=== PATIENT | female | born 1980 | race Caucasian/White ===

== ENCOUNTER 2017-12-22 14:37 | Emergency (ER) | payer OTHER ==
[~2017-12-22] VITALS: Ht 172.7 cm; Wt 84.4 kg
[~2017-12-22 14:37] MED LIST: BUSPIRONE HCL15 MG PO; CLONAZEPAM0.5 MG PO; DICLOFENAC POTA50 MG PO; FLUOXETINE HCL40 MG PO; KEPPRA500 MG PO; MELOXICAM7.5 MG PO; MIRTAZAPINE30 MG PO; PROPOXY-N/APAP1 EAC1 PO; ROZEREM8 MG PO; STRATTERA25 MG PO; WELLBUTRIN SR200 MG PO
[2017-12-22 15:29] LABS: APPEARANCE CLEAR ((CLEAR)); BILIRUBIN NEGATIVE; BLOOD NEGATIVE; COLOR STRAW ((YELLOW)); GLUCOSE (STRIP) NEGATIVE; KETONES NEGATIVE; LEUKOCYTES NEGATIVE; NITRITE NEGATIVE; PROTEIN (STRIP) NEGATIVE; UCUL ADDED? NO; UROBILINOGEN 0.2 MG/DL (0.2-1.0)
[2017-12-22 15:31] LABS: HEMATOCRIT 37.1 % (36.0-46.0); MCH 30.8 PG (29.0-34.0); MCV 87.9 FL (83-99); PLATELET COUNT 420 K/uL (156-360); RBC DIS.WIDTH-CV 11.9 % (11.8-14.6); RBC DIS.WIDTH-SD 38.2 % (39-53); RED BLOOD COUNT 4.22 M/uL (3.80-5.20); WHITE BLOOD COUNT 10.3 K/uL (4.1-10.2)
[2017-12-22 15:46] LABS: ALBUMIN 4.3 g/dL (3.2-4.8); CHLORIDE 97 mEq/L (99-109); POTASSIUM 4.4 mEq/L (3.7-5.4); SODIUM 130 mEq/L (136-147)
[2017-12-22 15:49] LABS: GLUCOSE 91 mg/dL (70-99); TOTAL PROTEIN 7.1 g/dL (6.4-8.3)
[2017-12-22 15:51] LABS: TOTAL BILIRUBIN 0.2 mg/dL (0.0-1.0)
[2017-12-22 15:52] LABS: ALKALINE PHOSPHATASE 88 IU/L (3-129); CREATININE 0.7 mg/dL (0.6-1.3); GFR ESTIMATE (CALCULATED) > 59 mL/min/
[2017-12-22 15:54] LABS: AST (GOT) 31 IU/L (2-34); UREA NITROGEN (BUN) 11 mg/dL (9-23)
[2017-12-22 15:55] LABS: ALT (GPT) 38 IU/L (3-49)
[2017-12-22 16:01] LABS: QUANTITATIVE HCG < 4.0 MIU/ML
[2017-12-22] MEDS ORDERED: MOTRIN800 MG PO (16:32)
[2017-12-22] MEDS ORDERED: FLOMAX0.4 MG PO (16:32)
[2017-12-22] MEDS ORDERED: ZOFRAN ODT4 MG PO (16:32)
[2017-12-22 17:15] VITALS: BP 149/89
== END 2017-12-22 17:59 | disposition home or self-care (01) ==
LOC: EME 14:37
DX: N20.0 Calculus of kidney (principal); Z88.0 Allergy status to penicillin; Z97.5 Presence of (intrauterine) contraceptive device
CPT/HCPCS: 74176; 80053; 81003; 84702; 85027; 99281; 99283; J1885

== ENCOUNTER 2018-02-17 15:16 | Emergency (ER) | payer OTHER ==
[~2018-02-17] VITALS: Ht 172.7 cm; Wt 86.5 kg
[~2018-02-17 15:16] MED LIST changes: +FLOMAX0.4 MG PO; +MOTRIN800 MG PO; +ZOFRAN ODT4 MG PO
[2018-02-17 16:14] LABS: HEMATOCRIT 35.7 % (36.0-46.0); HEMOGLOBIN 12.6 G/DL (11.9-15.5); MCH 31.5 PG (29.0-34.0); MCHC 35.3 G/DL (30.0-36.0); MCV 89.3 FL (83-99); PLATELET COUNT 380 K/uL (156-360); RBC DIS.WIDTH-CV 11.9 % (11.8-14.6); RBC DIS.WIDTH-SD 38.8 % (39-53); WHITE BLOOD COUNT 11.7 K/uL (4.1-10.2)
[2018-02-17 16:22] LABS: CHLORIDE 96 mEq/L (99-109); POTASSIUM 3.8 mEq/L (3.7-5.4); SODIUM 132 mEq/L (136-147)
[2018-02-17 16:23] LABS: GLUCOSE 88 mg/dL (70-99)
[2018-02-17 16:27] LABS: CREATININE 0.7 mg/dL (0.6-1.3); GFR ESTIMATE (CALCULATED) > 59 mL/min/
[2018-02-17 16:28] LABS: UREA NITROGEN (BUN) 7 mg/dL (9-23)
[2018-02-17 18:15] LABS: APPEARANCE CLEAR ((CLEAR)); BILIRUBIN NEGATIVE; BLOOD NEGATIVE; COLOR STRAW ((YELLOW)); GLUCOSE (STRIP) NEGATIVE; KETONES NEGATIVE; LEUKOCYTES NEGATIVE; NITRITE NEGATIVE; PROTEIN (STRIP) NEGATIVE; SPECIFIC GRAVITY 1.004 (1.000-1.030); UCUL ADDED? NO; UROBILINOGEN 0.2 MG/DL (0.2-1.0)
[2018-02-17] MEDS ORDERED: ANTIVERT25 MG PO (19:06)
[2018-02-17 19:08] VITALS: BP 166/90
== END 2018-02-17 19:09 | disposition home or self-care (01) ==
LOC: EXP 15:16 → EME 15:16 → EXP 19:09
PROVIDERS: Physician Assistant Medical
DX: R42 Dizziness and giddiness (principal); G40.909 Epilepsy, unspecified, not intractable, without status epilepticus; F32.9 Major depressive disorder, single episode, unspecified; F41.9 Anxiety disorder, unspecified; F90.9 Attention-deficit hyperactivity disorder, unspecified type; Z88.0 Allergy status to penicillin
CPT/HCPCS: 80048; 81003; 85027; 93005; 99281; 99283